=== PATIENT | male | born 1960 | race Caucasian/White ===

== ENCOUNTER → 2019-07-09 | Outpatient (CLI) | payer BC ==
--- NOTE | 2019-07-10 08:01 | REP ---
Clinical: Left ankle pain . Technique: AP, lateral, bilateral oblique views left ankle . Findings: No acute fracture or dislocation. Skeletal structures and joint spaces are intact and normal. Ankle mortise appears stable. No subcutaneous emphysema or radiodense foreign body. Peripheral vascular disease noted. Impression: Normal age-appropriate left ankle radiograph series. Electronically Signed by Enzo Bo MD 07/10/2019 07:52 A
== END ==
LOC: M WUC 15:06
PROVIDERS: ATTEND Internal Medicine
DX: M25.572 Pain in left ankle and joints of left foot (principal)

== ENCOUNTER → 2023-02-05 | Outpatient (CLI) | payer BC ==
[~2023-02-05] MED LIST: GABA-282 PO; IBUP-1114 PO; PANT40TA29 PO; POTA10808 PO; SERT50TA29 PO
== END ==
LOC: M LABSMTC 11:37
PROVIDERS: ATTEND Anesthesiology
DX: Z01.818 Encounter for other preprocedural examination (principal); Z11.52 Encounter for screening for COVID-19

== ENCOUNTER 2023-02-08 08:53 | Day surgery (SDC) | payer BC ==
[~2023-02-08] VITALS: Ht 175.3 cm; Wt 89.1 kg
[~2023-02-08 08:53] MED LIST changes: +NS 1,000 ML IV ONE
[2023-02-08] MEDS ORDERED: propofoL 500 MG/50 ML VIAL As Ordered ONE (10:07)
[2023-02-08] MEDS ORDERED: LIDOCAINE 2% 100MG/5ML SDV (FOR ANES.) As Ordered ONE (10:07)
[2023-02-08 10:40] VITALS: BP 100/60
== END 2023-02-08 11:00 | disposition home or self-care (01) ==
LOC: M OPP 08:53
PROVIDERS: ATTEND Surgery
DX: Z12.11 Encounter for screening for malignant neoplasm of colon (principal); D12.6 Benign neoplasm of colon, unspecified; G47.33 Obstructive sleep apnea (adult) (pediatric); Z79.1 Long term (current) use of non-steroidal anti-inflammatories (NSAID); Z79.891 Long term (current) use of opiate analgesic; Z79.899 Other long term (current) drug therapy; Z87.442 Personal history of urinary calculi

== ENCOUNTER → 2023-06-06 | Outpatient (CLI) | payer BC ==
[~2023-06-06] MED LIST changes: -NS 1,000 ML IV ONE
[2023-06-06 10:11] LABS: BASO # 0.1 10^3/uL (0.0-0.2); BASO % 0.9 % (0.0-1.0); EOS # 0.1 10^3/uL (0.0-0.5); EOS % 1.8 % (0.0-3.0); HEMATOCRIT 43.2 % (42.0-52.0); HEMOGLOBIN 14.1 g/dl (13.5-17.5); LYMPH # 1.4 10^3/uL (1.5-5.0); LYMPH % 24.5 % (24.0-44.0); MEAN CORPUSCULAR HEMOGLOBIN 29.1 pg (27.0-33.0); MEAN CORPUSCULAR HGB CONC 32.6 g/dl (32.0-36.5); MEAN CORPUSCULAR VOLUME 89.3 fl (80.0-96.0); MONO # 0.3 10^3/uL (0.0-0.8); MONO % 5.8 % (2.0-8.0); NEUTROPHILS # 3.7 10^3/uL (1.5-8.5); NEUTROPHILS % 66.6 % (36.0-66.0); PLATELET COUNT, AUTOMATED 143 10^3/uL (150-450); RED BLOOD COUNT 4.84 10^6/uL (4.30-6.10); WHITE BLOOD COUNT 5.5 10^3/uL (4.0-10.0)
[2023-06-06 10:35] LABS: BLOOD UREA NITROGEN 15 MG/DL (9-23); CALCIUM LEVEL 8.1 MG/DL (8.3-10.6); CARBON DIOXIDE LEVEL 26 MMOL/L (20-31); CHLORIDE LEVEL 111 MMOL/L (98-107); CREATININE FOR GFR 0.84 MG/DL (0.70-1.30); GLOMERULAR FILTRATION RATE > 60.0 (>49); GLUCOSE, FASTING 94 MG/DL (74-106); POTASSIUM SERUM 4.2 MMOL/L (3.5-5.1); SODIUM LEVEL 145 MMOL/L (136-145)
== END ==
LOC: M EKG 09:14
PROVIDERS: ATTEND Podiatrist
DX: M20.41 Other hammer toe(s) (acquired), right foot (principal); M79.671 Pain in right foot

== ENCOUNTER 2023-06-15 08:49 | Day surgery (SDC) | payer BC ==
[~2023-06-15] VITALS: Ht 175.3 cm; Wt 89.4 kg
[~2023-06-15 08:49] MED LIST changes: +LIDOCAINE 2% 100MG/5ML SDV (FOR ANES.) As Ordered ONE; +ceFAZolin SOD 2 GM in IV 1 EA IV ONE; +propofoL 200 MG/20 ML VIAL As Ordered ONE
[2023-06-15] MEDS ORDERED: MIDAZOLAM INJ 2MG/2ML VIAL As Ordered ONE (08:50)
[2023-06-15] MEDS ORDERED: fentaNYL 100 MCG/2 ML INJECTION As Ordered ONE (08:50)
[2023-06-15] MEDS ORDERED: LR 1,000 ML IV SCH (09:15)
[2023-06-15] MEDS ORDERED: propofoL 200 MG/20 ML VIAL As Ordered ONE ×2 (10:01→11:09)
[2023-06-15] MEDS ORDERED: ACETAMINOPHEN 1000MG 100ML IV BAG As Ordered ONE (10:06)
[2023-06-15] MEDS ORDERED: KETOROLAC 60MG 2ML VIAL As Ordered ONE (10:07)
[2023-06-15] MEDS ORDERED: ONDANSETRON 4MG 2ML VIAL As Ordered ONE (10:08)
[2023-06-15 12:00] VITALS: BP 118/71; TEMP 97.8; O2SAT 95
== END 2023-06-15 14:06 | disposition home or self-care (01) ==
LOC: M SDC 08:49
PROVIDERS: ATTEND Podiatrist
DX: M21.611 Bunion of right foot (principal); M20.40 Other hammer toe(s) (acquired), unspecified foot; K21.9 Gastro-esophageal reflux disease without esophagitis; G47.33 Obstructive sleep apnea (adult) (pediatric); Z79.899 Other long term (current) drug therapy
CPT/HCPCS: 28270; 28285; 28306; 73630; 88300; 97116; 97530; J0131; J0690; J1100; J1885; J2250; J2405; J3010

== ENCOUNTER 2023-10-19 08:58 | Day surgery (SDC) | payer BC ==
[~2023-10-19] VITALS: Ht 175.3 cm; Wt 90.4 kg
[~2023-10-19 08:58] MED LIST changes: -LIDOCAINE 2% 100MG/5ML SDV (FOR ANES.) As Ordered ONE; -propofoL 200 MG/20 ML VIAL As Ordered ONE
[2023-10-19] MEDS ORDERED: propofoL 200 MG/20 ML VIAL As Ordered ONE ×3 (09:41→10:38)
[2023-10-19] MEDS ORDERED: KETOROLAC 60MG 2ML VIAL As Ordered ONE (09:42)
[2023-10-19] MEDS ORDERED: ONDANSETRON 4MG 2ML VIAL As Ordered ONE (09:42)
[2023-10-19] MEDS ORDERED: LIDOCAINE 2% 100MG/5ML SDV (FOR ANES.) As Ordered ONE (09:42)
[2023-10-19] MEDS ORDERED: PROBCAP14 PO (09:44)
[2023-10-19] MEDS ORDERED: fentaNYL 100 MCG/2 ML INJECTION As Ordered ONE (09:50)
[2023-10-19] MEDS ORDERED: MIDAZOLAM INJ 2MG/2ML VIAL As Ordered ONE (09:50)
[2023-10-19] MEDS ORDERED: LIDOCAINE 2% MDV 20ML VIAL As Ordered ONE (10:31)
[2023-10-19] MEDS ORDERED: GENTAMICIN SULF 80MG/2ML VIAL As Ordered ONE (10:32)
[2023-10-19] MEDS ORDERED: ACETAMINOPHEN 1000MG 100ML IV BAG As Ordered ONE (12:29)
[2023-10-19] MEDS ORDERED: propofoL 500 MG/50 ML VIAL As Ordered ONE (13:18)
[2023-10-19 15:48] VITALS: BP 131/85; TEMP 97; O2SAT 95
== END 2023-10-19 16:17 | disposition home or self-care (01) ==
LOC: M SDC 08:58
PROVIDERS: ATTEND Podiatrist
DX: M21.622 Bunionette of left foot (principal); M20.42 Other hammer toe(s) (acquired), left foot; B35.1 Tinea unguium; M72.2 Plantar fascial fibromatosis; Z79.899 Other long term (current) drug therapy; G47.30 Sleep apnea, unspecified; K21.9 Gastro-esophageal reflux disease without esophagitis
CPT/HCPCS: 28110; 28285; 73630; 76000; 88300; C1713; C1769; J0131; J0665; J0690; J1100; J1580; J1885; J2250; J2405; J3010